=== PATIENT | female | born 1975 | race Caucasian/White ===

== ENCOUNTER 2021-02-12 08:04 | Day surgery (SDC) | payer OTHER ==
[2021-02-09 13:31] VITALS: BMI 22.2
[2021-02-12 10:07] VITALS: TEMP 98.4
[2021-02-12 10:44] VITALS: BP 130/85; PULSE 88
== END 2021-02-12 10:45 | disposition home or self-care (01) ==
LOC: JASU-ENDO 08:04
PROVIDERS: ATTEND Internal Medicine Gastroenterology
PROC: 0DB78ZX Excision of Stomach, Pylorus, Via Natural or Artificial Opening Endoscopic, Diagnostic (ICD-10-PCS; 2021-02-12)
PROC: 0DB98ZX Excision of Duodenum, Via Natural or Artificial Opening Endoscopic, Diagnostic (ICD-10-PCS; principal; 2021-02-12 09:00)
DX: K25.3 Acute gastric ulcer without hemorrhage or perforation (principal); K21.9 Gastro-esophageal reflux disease without esophagitis; K44.9 Diaphragmatic hernia without obstruction or gangrene; K29.50 Unspecified chronic gastritis without bleeding
CPT/HCPCS: 81025; 88305-TC; 88342-TC

== ENCOUNTER 2021-07-16 21:15 | Emergency (ER) | payer OTHER ==
[2021-07-16 21:23] VITALS: BP 114/75; PULSE 97; TEMP 97.9; BMI 22.6
[2021-07-16] MEDS ORDERED: IBUPROFEN 600 MG TABLET (FP) PO ONE ×2 (21:27)
== END 2021-07-17 00:47 | disposition home or self-care (01) ==
LOC: JER 21:15
DX: S80.911A Unspecified superficial injury of right knee, initial encounter (principal); V86.65XA Passenger of 3- or 4- wheeled all-terrain vehicle (ATV) injured in nontraffic accident, initial encounter
CPT/HCPCS: 73562-TC-RT-FY; 73700-TC-RT; 99284-25

== ENCOUNTER 2022-08-21 06:47 | Day surgery (SDC) | payer OTHER ==
[2022-08-19 13:35] VITALS: BMI 23.2
[2022-08-21 09:26] VITALS: TEMP 97.7
[2022-08-21 09:58] VITALS: BP 114/84; PULSE 71; RESP 12
== END 2022-08-21 09:58 | disposition home or self-care (01) ==
LOC: JASU-ENDO 06:47
PROVIDERS: ATTEND Internal Medicine Gastroenterology
PROC: 0DBL8ZX Excision of Transverse Colon, Via Natural or Artificial Opening Endoscopic, Diagnostic (ICD-10-PCS; principal; 2022-08-21 09:00)
DX: Z12.11 Encounter for screening for malignant neoplasm of colon (principal); D12.3 Benign neoplasm of transverse colon; K64.8 Other hemorrhoids; K63.89 Other specified diseases of intestine
CPT/HCPCS: 81025; 88305-TC

== ENCOUNTER 2023-01-20 04:18 | Inpatient (IN) | payer OTHER ==
[2023-01-16 13:12] VITALS: BMI 23.7
[2023-01-20] MEDS ORDERED: GABAPENTIN 300 MG CAPSULE PO ONE (09:00)
[2023-01-20] MEDS ORDERED: TRANEXAMIC ACID 1000 MG/10 ML VIAL IVPUSH ONE (09:00)
[2023-01-20] MEDS ORDERED: PHENAZOPYRIDINE HCL 100 MG TABLET (FP) PO ONE (09:00)
[2023-01-20] MEDS ORDERED: ACETAMINOPHEN 1000 MG/100 ML BAG IVPB ONE ×2 (09:00→17:45)
[2023-01-20] MEDS ORDERED: CEFAZOLIN 2 GM in DEXTROSE 5%-WATER - 100 ML IVPB ONE (09:00)
[2023-01-20 09:01] LABS: PH,URINE 5.5 (5.0-8.0); URINE APPEARANCE CLEAR; URINE BILIRUBIN NEGATIVE (NEGATIVE); URINE COLOR YELLOW; URINE GLUCOSE (UA) NEGATIVE (NEGATIVE); URINE KETONE NEGATIVE (NEGATIVE); URINE LEUK ESTERASE NEGATIVE (NEGATIVE); URINE NITRITE NEGATIVE (NEGATIVE); URINE PROTEIN NEGATIVE (NEGATIVE); URINE UROBILINOGEN 0.2 mg/dL (0.2-1.0)
[2023-01-20] MEDS ORDERED: CEFAZOLIN SODIUM 2 GM in DEXTROSE 5%-WATER 100 ML IVPB ONE (09:45)
[2023-01-20] MEDS ORDERED: MIDAZOLAM HCL 2 MG/2 ML SINGLE DOSE VIAL ONE (10:22)
[2023-01-20] MEDS ORDERED: PROPOFOL 40 ML ONE (10:23)
[2023-01-20] MEDS ORDERED: SUCCINYLCHOLINE CHLORIDE 200 MG/10 ML SYRINGE ONE (10:24)
[2023-01-20] MEDS ORDERED: ROCURONIUM BROMIDE 50 MG/5 ML SYRINGE ONE ×2 (10:24→11:28)
[2023-01-20] MEDS ORDERED: LIDOCAINE HCL/PF 2% SDV 5ML VIAL ONE (10:24)
[2023-01-20] MEDS ORDERED: BUPIVACAINE LIPOSOME/PF (EXPAREL) 266 MG/20 ML VIAL ONE (10:26)
[2023-01-20] MEDS ORDERED: BUPIVACAINE HCL/PF 0.25% (2.5MG/ML) 10 ML VIAL ONE (10:26)
[2023-01-20] MEDS ORDERED: ACETAMINOPHEN INJECTION 100 ML IVPB ONE (10:59)
[2023-01-20] MEDS ORDERED: KETOROLAC TROMETHAMINE 30 MG/1 ML VIAL ONE (11:01)
[2023-01-20] MEDS ORDERED: ceFAZolin SODIUM 1 GM VIAL IVPB ONE (11:01)
[2023-01-20] MEDS ORDERED: TRANEXAMIC ACID 1000 MG/10 ML VIAL ONE (11:05)
[2023-01-20] MEDS ORDERED: KETAMINE HCL 500 MG/10 ML VIAL ONE (11:08)
[2023-01-20] MEDS ORDERED: ONDANSETRON 4 MG/2 ML VIAL ONE (11:32)
[2023-01-20] MEDS ORDERED: ONDANSETRON 4 MG/2 ML VIAL IVPUSH PRN ×2 (12:47→12:52)
[2023-01-20] MEDS ORDERED: SIMETHICONE 80 MG TAB.CHEW (FP) PO PRN (12:52)
[2023-01-20] MEDS ORDERED: BISACODYL 5 MG TABLET.DR (FP) PO PRN (12:52)
[2023-01-20] MEDS ORDERED: oxyCODONE HCL 5 MG TABLET PO PRN ×2 (12:52)
[2023-01-20] MEDS ORDERED: HYDROmorphone *PCA* 10MG/50ML DISP.SYRIN PCA SCH (13:00)
[2023-01-20] MEDS ORDERED: LACTATED RINGERS SOLUTION 1,000 ML IV SCH (13:00)
[2023-01-20] MEDS: CEFAZOLIN 1 GM in DEXTROSE 5%-WATER - 50 ML IVPB SCH (19:18)
[2023-01-20 19:22] LABS: HEMATOCRIT 33.5 % (32.4-45.2); HEMOGLOBIN 10.9 GM/dL (10.7-15.3); MCH 27.2 pg (25.7-33.7); MCHC 32.5 g/dl (32.0-36.0); MEAN CELL VOLUME 83.9 fl (80-96); MEAN PLT VOLUME 9.6 fl (7.5-11.1); PLATELET COUNT 255 10^3/uL (134-434); RDW 14.2 % (11.6-15.6); WHITE BLOOD COUNT 16.8 K/mm3 (4.0-10.0)
[2023-01-20 19:25] LABS: CALCIUM 8.4 mg/dL (8.5-10.1)
[2023-01-20 19:29] LABS: CREATININE 0.6 mg/dL (0.55-1.3)
[2023-01-20] MEDS: IBUPROFEN 800 MG/8 ML IJ IVPB SCH (19:55)
[2023-01-20] MEDS ORDERED: ACETAMINOPHEN 1000 MG/100 ML BAG IVPB SCH (22:00)
[2023-01-21] MEDS: LACTATED RINGERS SOLUTION 1,000 ML/1,000 ML INFUS.BAG IV SCH ×2 (02:00→13:10)
[2023-01-21] MEDS: ACETAMINOPHEN 1000 MG/100 ML BAG IVPB SCH ×3 (02:00→18:15)
[2023-01-21] MEDS: CEFAZOLIN 1 GM in DEXTROSE 5%-WATER - 50 ML IVPB SCH (02:03)
[2023-01-21] MEDS: IBUPROFEN 800 MG/8 ML IJ IVPB SCH ×2 (04:15→12:14)
[2023-01-21 07:36] LABS: HEMATOCRIT 31.1 % (32.4-45.2); HEMOGLOBIN 10.1 GM/dL (10.7-15.3); MCH 27.9 pg (25.7-33.7); MCHC 32.6 g/dl (32.0-36.0); MEAN CELL VOLUME 85.5 fl (80-96); MEAN PLT VOLUME 9.7 fl (7.5-11.1); PLATELET COUNT 264 10^3/uL (134-434); RBC 3.63 M/mm3 (3.60-5.2); RDW 14.7 % (11.6-15.6); WHITE BLOOD COUNT 16.3 K/mm3 (4.0-10.0)
[2023-01-21 07:51] LABS: BLOOD UREA NITROGEN 8.6 mg/dL (7-18); CALCIUM 8.5 mg/dL (8.5-10.1)
[2023-01-21 07:55] LABS: CREATININE 0.6 mg/dL (0.55-1.3)
[2023-01-21] MEDS: FAMOTIDINE 20 MG TABLET PO SCH (09:42)
[2023-01-21] MEDS: ENOXAPARIN NA (PORCINE) 40 MG/0.4 ML DISP.SYRIN SQ SCH (09:46)
[2023-01-21 12:53] VITALS: RESP 16
[2023-01-21] MEDS: DOCUSATE SODIUM 100 MG CAPSULE (FP) PO SCH ×2 (15:55→21:00)
[2023-01-21] MEDS ORDERED: IBUPROFEN 600 MG TABLET (FP) PO SCH (20:00)
[2023-01-21] MEDS: IBUPROFEN 600 MG TABLET (FP) PO SCH (21:00)
[2023-01-22] MEDS: ACETAMINOPHEN 500 MG TABLET (FP) PO SCH ×2 (00:18→09:46)
[2023-01-22] MEDS: DOCUSATE SODIUM 100 MG CAPSULE (FP) PO SCH (05:51)
[2023-01-22] MEDS: IBUPROFEN 600 MG TABLET (FP) PO SCH (05:51)
[2023-01-22] MEDS: FAMOTIDINE 20 MG TABLET PO SCH (09:47)
[2023-01-22] MEDS: ENOXAPARIN NA (PORCINE) 40 MG/0.4 ML DISP.SYRIN SQ SCH (09:47)
[2023-01-22 10:16] LABS: BASO % 0.3 % (0-2.0); EOS % 0.4 % (0-4.5); HEMATOCRIT 32.4 % (32.4-45.2); HEMOGLOBIN 10.6 GM/dL (10.7-15.3); LYMPH % 16.3 % (8-40); MCH 27.6 pg (25.7-33.7); MCHC 32.8 g/dl (32.0-36.0); MEAN CELL VOLUME 84.2 fl (80-96); MEAN PLT VOLUME 9.5 fl (7.5-11.1); MONO % 7.4 % (3.8-10.2); NEUT % 75.6 % (42.8-82.8); PLATELET COUNT 258 10^3/uL (134-434); RBC 3.85 M/mm3 (3.60-5.2); RDW 14.3 % (11.6-15.6); WHITE BLOOD COUNT 10.5 K/mm3 (4.0-10.0)
[2023-01-22 10:26] LABS: CALCIUM 8.4 mg/dL (8.5-10.1)
[2023-01-22 10:27] LABS: BLOOD UREA NITROGEN 9.8 mg/dL (7-18)
[2023-01-22 10:30] LABS: CREATININE 0.7 mg/dL (0.55-1.3)
[2023-01-22 12:18] VITALS: BP 104/66; PULSE 83; TEMP 97.6
== END 2023-01-22 12:20 | disposition home or self-care (01) | DRG 519 ==
LOC: J2C 04:18 → J3W 15:24
PROVIDERS: ADMIT Obstetrics & Gynecology; ATTEND Obstetrics & Gynecology
PROC: 0UT70ZZ Resection of Bilateral Fallopian Tubes, Open Approach (ICD-10-PCS; 2023-01-20)
PROC: 0UT00ZZ Resection of Right Ovary, Open Approach (ICD-10-PCS; 2023-01-20)
PROC: 0UT90ZZ Resection of Uterus, Open Approach (ICD-10-PCS; principal; 2023-01-20 10:00)
DX: D25.9 Leiomyoma of uterus, unspecified (principal); N83.291 Other ovarian cyst, right side; N93.9 Abnormal uterine and vaginal bleeding, unspecified
CPT/HCPCS: 36415; 80048; 81003; 84703; 85025; 85027; 86850; 86900; 86901; 88305-TC; 88307-TC; 88341-TC; 94010; 94760

== ENCOUNTER 2024-08-22 10:45 | Emergency (ER) | payer OTHER ==
[2024-08-22 10:51] VITALS: BP 142/93; PULSE 82; RESP 18; TEMP 98.4; BMI 23.8
[2024-08-22] MEDS ORDERED: KETOROLAC TROMETHAMINE 30 MG/1 ML VIAL ONE (12:07)
[2024-08-22] MEDS ORDERED: diazePAM 5 MG TABLET ONE (12:07)
[2024-08-22] MEDS: KETOROLAC TROMETHAMINE 30 MG/1 ML VIAL IM ONE (12:12)
[2024-08-22] MEDS: diazePAM 5 MG TABLET PO ONE (12:12)
[2024-08-22] MEDS ORDERED: LIDOCAINE 4% PATCH TP ONE (13:01)
[2024-08-22] MEDS ORDERED: GABAPENTIN 300 MG CAPSULE ONE (13:04)
[2024-08-22] MEDS: GABAPENTIN 300 MG CAPSULE PO ONE (13:08)
[2024-08-22] MEDS: LIDOCAINE 4% PATCH TP ONE (13:08)
[2024-08-22] MEDS ORDERED: DEXAMETHASONE SOD PHOSPHATE 10 MG/1 ML VIAL ONE (14:40)
[2024-08-22] MEDS: DEXAMETHASONE SOD PHOSPHATE 10 MG/1 ML VIAL IM ONE (14:45)
[2024-08-22] MEDS ORDERED: LIDOCAINE PATCH REMOVAL MC ONE (22:00)
== END 2024-08-22 17:33 | disposition home or self-care (01) ==
LOC: JERFT 10:45 → JER 10:45 → JERFT 17:33
PROC: 3E023GC Introduction of Other Therapeutic Substance into Muscle, Percutaneous Approach (ICD-10-PCS; principal; 2024-08-22)
PROC: 3E0133Z Introduction of Anti-inflammatory into Subcutaneous Tissue, Percutaneous Approach (ICD-10-PCS; 2024-08-22)
DX: M48.02 Spinal stenosis, cervical region (principal); M62.838 Other muscle spasm; M25.512 Pain in left shoulder; R51.9 Headache, unspecified
CPT/HCPCS: 70450-TC; 72125-TC; 73030-TC-LT-FY; 93005; 93010; 99285-25; J1100